=== PATIENT | female | born 1990 | race Caucasian/White ===

== ENCOUNTER 2016-12-21 15:48 | Inpatient (IN) | payer OTHER ==
[~2016-12-21] VITALS: Ht 170.2 cm; Wt 86.2 kg
[2016-12-21] VITALS (19 sets, daily range): BP systolic 124; BP diastolic 68; PULSE 62–82; RESP 18–20; TEMP 98.5
[2016-12-21] MEDS ORDERED: LACTATED RINGER'S 1000 ML INJ 1,000 ML IV PRN (19:47)
--- NOTE | 2016-12-21 19:47 | PD ---
HPI Chief Complaint 41 weeks gestation Travel History International Travel<30 Days: No Contact w/Intl Traveler<30Days: No Known Affected Area: No History of Present Illness HPI 26-year-old G3 P 1011, IUP at 41.0 care complicated by lapse in care, bipolar disorder, previous delivery, corrected VSD, GERD, anxiety, dysthymic disorder, bipolar disorder, chronic pelvic pain The patient presents at 41 weeks gestation for evaluation for a trial of labor. She reports she was told by her previous physician that if she progressed to 41 weeks without entering spontaneous labor she should go to the hospital and be evaluated. She is coming to [place] today because she desires of trial of labor and understands that we offer the service. She reports good movement. She denies any LOF or VB. She reports occasional contractions. She is committed to attempted . Weeks Gestation: 41 Para: 1 : 2 History Past Medical History Narrative Medical bipolar disorder, corrected VSD, GERD, anxiety, dysthymic disorder, bipolar disorder, chronic pelvic pain Obstetric History Obstetric History G3 1011 Full-term delivery 1 for nonreassuring heart tracing EAB 1 Past Surgical History Narrative Surgical Corrected VSD delivery Family History Narrative Family History Hypertension, CVA Social History Narrative Social History Denies drug or alcohol use History of tobacco use but DC'd during the Alcohol Use: No Tobacco Use: Yes Substance Abuse: No Allergies-Medications (Allergen,Severity, Reaction): Coded Allergies: latex (Verified Allergy, Unknown, rash, 12/21/16) Review of Systems Except as stated in HPI: all other systems reviewed are Neg Physical Exam Narrative GENERAL: Well-nourished, well-developed patient. SKIN: Warm and dry. HEAD: Normocephalic and atraumatic. EYES: No scleral icterus. No injection or drainage. ENT: No nasal drainage noted. Mucous membranes pink. Airway patent. NECK: Supple, trachea midline. No JVD. CARDIOVASCULAR: Regular rate and rhythm without murmurs, gallops, or rubs. RESPIRATORY: Breath sounds equal bilaterally. No accessory muscle use. BREASTS: Deferred ABDOMEN/GI: Abdomen soft, non-tender, bowel sounds present, no rebound, no guarding Gravid GENITOURINARY: External Genitalia: intact and normal in appearance. Normal BUS. No cervical or vaginal masses noted. Physiologic discharge. Grossly normal rugae. SVE 1/50/-3, cephalic. Uterine Contractions: Irregular FHT's: heart tones with baseline 120s, moderate long-term variability, good accelerations, no decelerations, this is a reactive/category 1 heart rate tracing EXTREMITIES: No cyanosis or edema. BACK: Nontender without obvious deformity. No CVA tenderness. NEUROLOGICAL: Awake and alert. Motor and sensory grossly within normal limits. Five out of 5 muscle strength in all muscle groups. Normal speech. Musculoskeletal: Grossly normal range of motion, gait, muscle strength Psychiatric: Grossly normal memory and affect Data Data Orders Orders Us Ob Limited (12/21/16 ) MDM Plan Assessment/plan: 1. IUP at 41.0 2. Lapse of care 3. Prior delivery: Patient strongly desires a trial of labor after . We discussed at length the risks benefits and alternatives including a scheduled repeat delivery. We discussed the risks that include but are not limited to uterine rupture with potential catastrophic consequences of maternal or morbidity and mortality including pain and damage and , maternal hysterectomy and others. The patient remains committed to a trial of labor. I personally reviewed all of her medical records but was unable to find an operative report. We discussed that a trial of labor after carries with it an approximately 1% risk of uterine rupture in the event the uterus was closed in 2 layers and may be higher if the uterus was closed in a one layer closure. We discussed the indications for a repeat delivery in labor including nonreassuring heart rate status/ heart rate decelerations and or arrest of labor. The patient is in agreement with a repeat if indicated. We discussed the risks of delivery at length including but not limited to pain, infection, bleeding, injury to other organs like the bladder/bowel/nerves/vessels, injury to the baby, need for repeat operation, need for blood transfusion, need for hysterectomy, wound infection and breakdown, and other possible complications. The patient is in agreement and we will admit for a trial of labor at term. We discussed the risks of induction of labor and the use of oxytocin may increase the risk of uterine rupture. We discussed the use of the Cook catheter as a method of manual dilation and the patient is in agreement to proceed in this manner. All of her questions and questions of her family members were answered 4. well-being: Reassuring testing with reactive NST and category 1 heart rate tracing. 5. History of VSD repair 6. bipolar disorder 7. GERD 8. anxiety 9. dysthymic disorder 10. bipolar disorder 11. chronic pelvic pain 12. GBS unknown: Will send rapid GBS 13. Ultrasound was obtained today due to lapse in care with estimated weight 3688 g with an anterior placenta and no previa noted, YURIY 13.72 Lizzy Valdez MD Dec 21, 2016 19:46
[2016-12-21] MEDS ORDERED: SODIUM CHLORID 0.9% 500 ML INJ 500 ML IV PRN (20:00)
[2016-12-21] MEDS ORDERED: LIDOCAINE HCL 1% 50 ML VIAL I-DERMAL PRN (20:00)
[2016-12-21] MEDS ORDERED: OXYTOCIN 30 UNITS-500ML PREMIX 500 ML IV ONE (20:00)
[2016-12-21] MEDS ORDERED: LIDOCAINE HCL 1% 50 ML VIAL INFIL PRN (20:00)
[2016-12-21] MEDS ORDERED: MINERAL OIL 10 ML VIAL TOPICAL PRN (20:00)
[2016-12-21] MEDS ORDERED: CITRIC ACID-SODIUM CITRATE LIQ 30 ML UDC PO SCH (20:00)
[2016-12-21] MEDS ORDERED: SODIUM CHLOR 0.9% 1000 ML INJ 1,000 ML IV PRN (20:07)
--- NOTE | 2016-12-21 20:15 | HHI.HP ---
History & Physical H&P Patient Name: Shawna Pickett Unit Number: [id number] Date of : 1990 Patient Status: Registered Emergency Room Attending Doctor: Lizzy Valdez MD [facility] HPI Chief Complaint 41 weeks gestation Travel History International Travel<30 Days: No Contact w/Intl Traveler<30Days: No Known Affected Area: No History of Present Illness HPI 26-year-old G3 P 1011, IUP at 41.0 care complicated by lapse in care, bipolar disorder, previous delivery, corrected VSD, GERD, anxiety, dysthymic disorder, bipolar disorder, chronic pelvic pain The patient presents at 41 weeks gestation for evaluation for a trial of labor. She reports she was told by her previous physician that if she progressed to 41 weeks without entering spontaneous labor she should go to the hospital and be evaluated. She is coming to [place] today because she desires of trial of labor and understands that we offer the service. She reports good movement. She denies any LOF or VB. She reports occasional contractions. She is committed to attempted . Weeks Gestation: 41 Para: 1 : 2 History (Limited) History Past Medical History Narrative Medical bipolar disorder, corrected VSD, GERD, anxiety, dysthymic disorder, bipolar disorder, chronic pelvic pain Obstetric History Obstetric History G3 1011 Full-term delivery 1 for nonreassuring heart tracing EAB 1 Past Surgical History Narrative Surgical Corrected VSD delivery Family History Narrative Family History Hypertension, CVA Social History Narrative Social History Denies drug or alcohol use History of tobacco use but DC'd during the Alcohol Use: No Tobacco Use: Yes Substance Abuse: No Allergies-Medications Allergies-Medications (Allergen,Severity, Reaction): Coded Allergies: latex (Verified Allergy, Unknown, rash, 12/21/16) ROS Review of Systems Except as stated in HPI: all other systems reviewed are Neg Physical Exam Physical Exam Narrative GENERAL: Well-nourished, well-developed patient. SKIN: Warm and dry. HEAD: Normocephalic and atraumatic. EYES: No scleral icterus. No injection or drainage. ENT: No nasal drainage noted. Mucous membranes pink. Airway patent. NECK: Supple, trachea midline. No JVD. CARDIOVASCULAR: Regular rate and rhythm without murmurs, gallops, or rubs. RESPIRATORY: Breath sounds equal bilaterally. No accessory muscle use. BREASTS: Deferred ABDOMEN/GI: Abdomen soft, non-tender, bowel sounds present, no rebound, no guarding Gravid GENITOURINARY: External Genitalia: intact and normal in appearance. Normal BUS. No cervical or vaginal masses noted. Physiologic discharge. Grossly normal rugae. SVE 1/50/-3, cephalic. Uterine Contractions: Irregular FHT's: heart tones with baseline 120s, moderate long-term variability, good accelerations, no decelerations, this is a reactive/category 1 heart rate tracing EXTREMITIES: No cyanosis or edema. BACK: Nontender without obvious deformity. No CVA tenderness. NEUROLOGICAL: Awake and alert. Motor and sensory grossly within normal limits. Five out of 5 muscle strength in all muscle groups. Normal speech. Musculoskeletal: Grossly normal range of motion, gait, muscle strength Psychiatric: Grossly normal memory and affect Data Data Data Orders Orders Us Ob Limited (12/21/16 ) MDM MDM Plan Assessment/plan: 1. IUP at 41.0 2. Lapse of care 3. Prior delivery: Patient strongly desires a trial of labor after . We discussed at length the risks benefits and alternatives including a scheduled repeat delivery. We discussed the risks that include but are not limited to uterine rupture with potential catastrophic consequences of maternal or morbidity and mortality including pain and damage and , maternal hysterectomy and others. The patient remains committed to a trial of labor. I personally reviewed all of her medical records but was unable to find an operative report. We discussed that a trial of labor after carries with it an approximately 1% risk of uterine rupture in the event the uterus was closed in 2 layers and may be higher if the uterus was closed in a one layer closure. We discussed the indications for a repeat delivery in labor including nonreassuring heart rate status/ heart rate decelerations and or arrest of labor. The patient is in agreement with a repeat if indicated. We discussed the risks of delivery at length including but not limited to pain, infection, bleeding, injury to other organs like the bladder/bowel/nerves/vessels, injury to the baby, need for repeat operation, need for blood transfusion, need for hysterectomy, wound infection and breakdown, and other possible complications. The patient is in agreement and we will admit for a trial of labor at term. We discussed the risks of induction of labor and the use of oxytocin may increase the risk of uterine rupture. We discussed the use of the Cook catheter as a method of manual dilation and the patient is in agreement to proceed in this manner. All of her questions and questions of her family members were answered 4. well-being: Reassuring testing with reactive NST and category 1 heart rate tracing. 5. History of VSD repair 6. bipolar disorder 7. GERD 8. anxiety 9. dysthymic disorder 10. bipolar disorder 11. chronic pelvic pain 12. GBS unknown: Will send rapid GBS 13. Ultrasound was obtained today due to lapse in care with estimated weight 3688 g with an anterior placenta and no previa noted, YURIY 13.72 Lizzy Valdez MD Dec 21, 2016 19:46 Lizzy Valdez MD Dec 21, 2016 20:15
--- NOTE | 2016-12-21 21:10 | HHI.PR ---
Subjective Remarks 26-year-old 011 with IUP of 41.0 undergoing induction of labor with Cook catheter for post term with previous delivery. Patient is aware of the risks and desires to proceed. Consent has previously been signed. This reassuring heart rate was category 1 heart rate tracing. The catheter was placed as per protocol and insufflated as per protocol. The patient tolerated the procedure well. Lizzy Valdez MD Dec 21, 2016 21:10
[2016-12-21 21:39] LABS: BLOOD, URINE NEG (NEG); CALCIUM OXALATE CRYSTALS,URINE OCC /hpf; COMMENT (UR) CULT NOT INDICATED; CULTURE IF INDICATED CULT NOT INDICATED; GLUCOSE,URINE 300 mg/dL (NEG); KETONE, URINE NEG (NEG); MUCUS URINE FEW /lpf (OCC); NITRITE,URINE NEG (NEG); SQUAMOUS EPITHELIAL CELL URINE 1 /hpf (0-5); URINE COLOR YELLOW (YELLW/STRAW)
[2016-12-21 23:12] LABS: BASOPHIL % 0.2 % (0.0-2.0); EOSINOPHIL # 0.1 TH/MM3 (0-0.4); EOSINOPHIL % 0.6 % (0.0-4.0); HEMATOCRIT 35.5 % (35.0-46.0); HEMO FLAGS DIFF FINAL; LYMPH % 20.4 % (9.0-44.0); LYMPHOCYTE # 2.3 TH/MM3 (1.0-4.8); MEAN CELL VOLUME 93.8 FL (80.0-100.0); MEAN CORPUSCULAR HEMOGLOBIN 31.5 PG (27.0-34.0); MEAN CORPUSCULAR HGB CONC 33.5 % (32.0-36.0); NEUT % 71.8 % (16.0-70.0); PLATELET COUNT 172 TH/MM3 (150-450); RED BLOOD COUNT 3.78 MIL/MM3 (4.00-5.30); RED CELL DISTRIBUTION WIDTH 13.2 % (11.6-17.2); WHITE BLOOD COUNT 11.1 TH/MM3 (4.0-11.0)
[2016-12-22] VITALS (175 sets, daily range): BP systolic 92–138; BP diastolic 39–81; PULSE 63–93; RESP 15–20; TEMP 98.5–99.1; O2SAT 97–100
[2016-12-22] MEDS: LACTATED RINGER'S 1000 ML INJ 1,000 ML IV SCH ×2 (03:22→19:27)
[2016-12-22] MEDS ORDERED: ONDANSETRON HCL 4 MG/2 ML VIAL IV PUSH PRN (10:30)
--- NOTE | 2016-12-22 10:48 | PD.LABORPN ---
Subjective Subjective Pt resting comfortably, feeling contractions. Denies any new symptoms. No new complaints. Objective Objective Pelvic Exam: Cervix: soft Dilatation: 5 Effacement: 80 Station: -3 Presentation: vertex Membranes: ruptured; AROM at 0904 Uterine Contractions: q2-3 minutes FHT's: Category: 1 Baseline: 135 Reactive: Yes Variability: Moderate Decels: none Weeks Gestation: 41 Gest Age Assessed Date: Dec 22, 2016 Gest Age Assessed Time: 10:44 Pt started active labor?: Yes Active labor start date: Dec 22, 2016 Active labor start time: 10:45 Medical induction of labor?: No Medical induction start date: Dec 21, 2016 Artificial rupture of membrane: Yes Artificial ROM date: Dec 22, 2016 Artifical ROM time: 09:04 Assessment/Plan Assessment and Plan 26 y/o at 41/1 for Category 1 FHT AROM at 0904 this morning -Continue expectant management -Continuous FHT -Monitor vitals -Plan for vaginal delivery Rudy Roach MD, R2 Dec 22, 2016 10:48
[2016-12-22] MEDS ORDERED: BUPIVACAINE HCL PF 0.25% 10 ML VIAL ONE ×2 (10:55→17:37)
[2016-12-22] MEDS ORDERED: fentaNYL 2MCG-BUPIV 0.125% INJ 100 ML ONE (10:56)
[2016-12-22] MEDS ORDERED: ePHEDrine/NS 25 MG/5 ML SYR ONE (10:56)
[2016-12-22] MEDS ORDERED: DIPHTH/TETANUS/ACEL PERTUSSIS (BOOSTER) 0.5 ML VIAL/PFS IM ONE (16:00)
[2016-12-22] MEDS ORDERED: MEASLES, MUMPS, RUBELLA VACCINE 0.5 ML VIAL SQ ONE (16:00)
[2016-12-22] MEDS ORDERED: OXYTOCIN 30 UNITS-500ML PREMIX 500 ML IV SCH ×2 (16:00→23:30)
[2016-12-22] MEDS ORDERED: NO SYSTEM NARCOTICS PRN (16:15)
[2016-12-22] MEDS ORDERED: DO NOT ADMINISTER ANTICOAGULANTS PRN (16:15)
[2016-12-22] MEDS ORDERED: ePHEDrine/NS 25 MG/5 ML SYR IV PUSH PRN (16:15)
[2016-12-22] MEDS: fentaNYL 2MCG-BUPIV 0.125% 100 ML EPIDURAL SCH ×2 (17:12→21:53)
--- NOTE | 2016-12-22 23:23 | PD.OB.DELI ---
Weeks gestation: 41 Gest age assessed date: Dec 22, 2016 Gest age assessed time: 10:44 Pt started active labor?: Yes Active labor start date: Dec 22, 2016 Active labor start time: 10:45 Medical induction of labor?: No Medical induction start date: Dec 21, 2016 Artificial rupture of membrane: Yes Artificial ROM date: Dec 22, 2016 Artifical ROM time: 09:04 Anesthesia: Epidural Episiotomy: None Vaginal Delivery: Normal Presentation: Occiput anterior Nuchal Cord: x1 Delayed cord clamping (45 sec): Yes Infant: Female Delivery date: Dec 22, 2016 Delivery time: 23:11 One Minute : 8 Five Minute : 9 Weight: 3635 gm Placenta: Spontaneous delivery Laceration: No lacerations Estimated blood loss: 100 cc Additional Information Sj Can II, MD Dec 22, 2016 23:23
[2016-12-22] MEDS ORDERED: BENZOCAINE 20% TOPICAL SPRAY 60 ML CAN TOPICAL PRN (23:30)
[2016-12-22] MEDS ORDERED: ONDANSETRON ODT 4 MG TAB PO PRN (23:30)
[2016-12-22] MEDS ORDERED: oxyCODONE/ACETAMINOPHEN 5 MG/325 MG TAB PO PRN (23:30)
[2016-12-22] MEDS ORDERED: WITCH HAZEL 50%/GLYCERIN 12.5% 40 PAD JAR TOPICAL PRN (23:30)
[2016-12-22] MEDS ORDERED: ALUMINUM/MAGNESIUM/SIMETH 30 ML CUP PO PRN (23:30)
[2016-12-22] MEDS ORDERED: ZOLPIDEM TARTRATE 5 MG TAB PO PRN (23:30)
[2016-12-22] MEDS ORDERED: SODIUM CHLORIDE 0.9% FLUSH 10 ML FLUSH IV FLUSH PRN (23:30)
[2016-12-22] MEDS ORDERED: DOCUSATE SODIUM 50 MG/SENNA 8.6 MG TAB PO PRN (23:30)
[2016-12-23] VITALS (9 sets, daily range): BP systolic 97–116; BP diastolic 56–75; PULSE 57–86; RESP 17–18; TEMP 97.9–98.1
[2016-12-23] MEDS: ACETAMINOPHEN 325 MG TAB PO PRN ×3 (04:24→16:24)
[2016-12-23] MEDS: IBUPROFEN 600 MG TAB PO PRN ×3 (04:25→16:24)
--- NOTE | 2016-12-23 07:45 | HHI.OB ---
Subjective Post Day: 1 Remarks term pt with last night doing well this AM , + BF , clark diet Objective Vitals/I&O Vital Signs Date Time Temp Pulse Resp B/P (MAP) Pulse Ox O2 Delivery O2 Flow Rate FiO2 12/23/16 04:57 18 12/23/16 04:56 76 116/61 (79) 12/23/16 01:00 74 109/56 (73) 12/23/16 00:45 74 113/75 (88) 12/23/16 00:30 77 116/59 (78) 12/23/16 00:15 74 104/59 (74) 12/23/16 00:01 86 97/56 (70) 12/22/16 23:47 86 124/63 (83) 12/22/16 23:42 98.5 12/22/16 23:34 15 12/22/16 23:31 80 128/64 (85) 12/22/16 23:23 16 12/22/16 23:15 92 138/77 (97) 12/22/16 23:01 77 122/67 (85) 12/22/16 23:00 77 12/22/16 22:45 73 114/62 (79) 12/22/16 22:45 73 12/22/16 22:35 75 12/22/16 22:30 73 12/22/16 22:30 80 111/59 (76) 12/22/16 22:25 74 12/22/16 22:20 72 99 12/22/16 22:15 98 12/22/16 22:15 71 109/61 (77) 12/22/16 22:15 70 12/22/16 22:10 71 12/22/16 22:10 98 12/22/16 22:05 71 12/22/16 22:05 98 12/22/16 22:00 97 12/22/16 22:00 98.9 12/22/16 22:00 70 103/51 (68) 12/22/16 22:00 69 12/22/16 21:55 97 12/22/16 21:55 72 12/22/16 21:53 17 12/22/16 21:50 97 12/22/16 21:50 17 12/22/16 21:50 71 12/22/16 21:45 74 12/22/16 21:45 74 105/53 (70) 97 12/22/16 21:40 81 98 12/22/16 21:35 86 99 12/22/16 21:30 98 12/22/16 21:30 74 12/22/16 21:30 76 108/53 (71) 12/22/16 21:27 71 109/54 (72) 12/22/16 21:25 72 12/22/16 21:25 97 12/22/16 21:20 73 97 12/22/16 21:15 71 98 12/22/16 21:10 69 98 12/22/16 21:05 69 97 12/22/16 21:00 69 98 12/22/16 20:55 71 99 12/22/16 20:50 70 98 12/22/16 20:45 84 100 12/22/16 20:40 71 98 12/22/16 20:35 73 98 12/22/16 20:30 81 100 12/22/16 20:25 78 100 12/22/16 20:20 85 100 12/22/16 20:15 78 100 12/22/16 20:10 77 99 12/22/16 20:05 99 12/22/16 20:05 75 12/22/16 20:00 76 12/22/16 20:00 99 12/22/16 20:00 99.0 16 12/22/16 20:00 77 114/64 (81) 12/22/16 19:57 77 114/60 (78) 12/22/16 19:55 98 12/22/16 19:55 81 12/22/16 19:50 99 12/22/16 19:50 84 12/22/16 19:45 79 12/22/16 19:45 99 12/22/16 19:40 80 98 12/22/16 19:35 74 97 12/22/16 19:30 76 98 12/22/16 19:25 75 98 12/22/16 19:20 75 99 12/22/16 19:15 77 99 12/22/16 19:10 76 12/22/16 19:10 99 12/22/16 19:05 98 12/22/16 19:05 73 12/22/16 19:00 100 12/22/16 19:00 79 12/22/16 18:55 73 12/22/16 18:55 100 12/22/16 18:50 100 12/22/16 18:50 78 12/22/16 18:45 100 12/22/16 18:45 69 12/22/16 18:40 66 12/22/16 18:35 69 12/22/16 18:30 69 12/22/16 18:25 73 12/22/16 18:20 74 12/22/16 18:15 16 12/22/16 18:15 72 12/22/16 18:10 73 12/22/16 18:05 71 12/22/16 18:00 77 111/64 (80) 12/22/16 18:00 71 12/22/16 17:55 75 12/22/16 17:50 74 12/22/16 17:45 74 108/61 (77) 12/22/16 17:45 74 12/22/16 17:43 79 114/64 (81) 12/22/16 17:40 76 12/22/16 17:35 82 12/22/16 17:30 79 12/22/16 17:30 77 104/70 (81) 12/22/16 17:25 81 12/22/16 17:20 85 12/22/16 17:15 72 12/22/16 17:15 84 120/62 (81) 12/22/16 17:10 74 12/22/16 17:05 78 12/22/16 17:00 85 12/22/16 17:00 85 117/61 (79) 12/22/16 16:55 81 12/22/16 16:50 81 12/22/16 16:45 74 106/57 (73) 12/22/16 16:45 99.1 20 12/22/16 16:45 77 12/22/16 16:41 76 105/63 (77) 12/22/16 16:40 83 12/22/16 16:00 79 110/54 (72) 12/22/16 15:45 76 104/45 (64) 12/22/16 15:30 67 95/39 (57) 12/22/16 15:15 67 99/41 (60) 12/22/16 15:00 71 99/43 (61) 12/22/16 14:45 99.0 69 18 92/41 (58) 12/22/16 14:30 65 101/39 (59) 12/22/16 14:15 75 99/53 (68) 12/22/16 14:00 69 98/53 (68) 12/22/16 13:45 72 98/58 (71) 12/22/16 13:31 83 110/62 (78) 12/22/16 13:20 74 12/22/16 13:15 77 12/22/16 13:15 93 114/72 (86) 12/22/16 13:05 67 12/22/16 13:00 70 12/22/16 13:00 67 111/56 (74) 12/22/16 12:55 67 12/22/16 12:50 80 12/22/16 12:45 70 115/57 (76) 12/22/16 12:45 69 12/22/16 12:40 76 12/22/16 12:35 78 12/22/16 12:30 70 12/22/16 12:30 79 110/59 (76) 12/22/16 12:25 71 12/22/16 12:20 77 12/22/16 12:15 72 109/63 (78) 12/22/16 12:15 70 12/22/16 12:10 74 12/22/16 12:10 69 117/58 (77) 12/22/16 12:10 70 12/22/16 12:05 74 104/68 (80) 12/22/16 12:05 77 12/22/16 12:05 73 12/22/16 12:00 74 112/56 (74) 12/22/16 12:00 67 12/22/16 12:00 73 12/22/16 11:56 72 107/61 (76) 12/22/16 11:55 69 12/22/16 11:55 70 12/22/16 11:50 70 12/22/16 11:50 70 12/22/16 11:50 69 116/66 (83) 12/22/16 11:45 69 12/22/16 11:45 72 12/22/16 11:45 71 123/69 (87) 12/22/16 11:40 68 12/22/16 11:40 70 12/22/16 11:40 71 121/67 (85) 12/22/16 11:35 69 12/22/16 11:35 69 12/22/16 11:35 70 119/68 (85) 12/22/16 11:30 73 129/63 (85) 12/22/16 11:30 67 12/22/16 11:30 74 12/22/16 11:25 74 12/22/16 11:25 67 122/60 (80) 12/22/16 11:25 72 12/22/16 11:21 119/69 (86) 12/22/16 11:21 63 12/22/16 11:20 75 12/22/16 11:20 88 12/22/16 11:19 90 12/22/16 11:19 121/74 (90) 12/22/16 11:15 122/65 (84) 12/22/16 11:15 80 12/22/16 11:15 80 12/22/16 11:15 75 12/22/16 11:11 71 12/22/16 11:11 124/68 (86) 12/22/16 11:10 77 12/22/16 11:10 78 12/22/16 11:05 83 12/22/16 11:05 81 12/22/16 11:00 78 12/22/16 10:45 74 12/22/16 10:40 64 12/22/16 10:35 73 12/22/16 10:30 74 113/67 (82) 12/22/16 10:30 80 12/22/16 09:55 84 12/22/16 09:50 80 12/22/16 09:45 80 12/22/16 09:40 79 12/22/16 09:35 74 12/22/16 09:25 76 12/22/16 09:20 79 12/22/16 09:15 77 12/22/16 09:10 81 12/22/16 09:05 78 12/22/16 09:00 76 12/22/16 08:55 74 12/22/16 08:50 85 12/22/16 08:45 74 12/22/16 08:40 78 12/22/16 08:35 81 12/22/16 08:30 83 12/22/16 07:45 80 108/66 (80) 12/22/16 07:45 98.5 85 Objective Remarks GENERAL: Well-nourished, well-developed patient. CARDIOVASCULAR: Regular rate and rhythm without murmurs, gallops, or rubs. RESPIRATORY: Breath sounds equal bilaterally. No accessory muscle use. ABDOMEN/GI: Abdomen soft, non-tender. Fundus: Firm, non-tender at umbilicus. GENITOURINARY: Light to moderate bleeding. EXTREMITIES: No cyanosis or edema, non-tender, without signs of DVT. Medications and IVs Current Medications Medications (Trade) Dose Ordered Sig/Hilaria Route Start Time Stop Time Status Last Admin Lactated Ringer's 1,000 ml @ 125 mls/hr Q8H IV 12/21/16 19:47 12/22/16 19:27 Lactated Ringer's 1,000 ml @ 3,000 mls/hr Q20M PRN IV 12/21/16 19:47 Sodium Chloride 500 ml @ 1,000 mls/hr ONCE PRN IV 12/21/16 20:00 Sodium Chloride 1,000 ml @ 100 mls/hr Q10H PRN IV 12/21/16 20:07 (Xylocaine 1% Inj (50 ml)) 0.1 ml UNSCH X1 PRN I-DERMAL 12/21/16 20:00 12/24/16 19:59 (Bicitra Liq) 30 ml OBSTETRICS NURSE PO 12/21/16 20:00 12/25/16 19:59 (fentaNYL INJ) 50 mcg Q1H PRN IV PUSH 12/21/16 20:00 (fentaNYL INJ) 100 mcg Q1H PRN IV PUSH 12/21/16 20:00 12/22/16 09:39 (Xylocaine 1% Inj (50 ml)) 10 ml UNSCH X1 PRN INFIL 12/21/16 20:00 12/23/16 19:59 (Muri-Lube Oil) 10 ml UNSCH PRN TOPICAL 12/21/16 20:00 12/22/16 23:31 (Zofran Inj) 4 mg Q6HR PRN IV PUSH 12/22/16 10:30 Oxytocin 500 ml @ 0 mls/hr TITRATE IV 12/22/16 16:00 12/22/16 15:55 Miscellaneous Information No systemic narcotics to be given except... UNSCH PRN .XX 12/22/16 16:15 12/23/16 16:14 Miscellaneous Information DO NOT ADMINISTER ANY ANTICOAGUL... UNSCH PRN .XX 12/22/16 16:15 12/23/16 16:14 Fentanyl/ Bupivacaine HCl 100 ml @ 0 mls/hr TITRATE EPIDURAL 12/22/16 16:15 12/22/16 21:53 (ePHEDrine/NS 25 MG/5 ML SYR) 10 mg UNSCH PRN IV PUSH 12/22/16 16:15 12/23/16 16:14 (NS Flush) 2 ml BID IV FLUSH 12/23/16 09:00 (NS Flush) 2 ml UNSCH PRN IV FLUSH 12/22/16 23:30 (Tylenol) 650 mg Q4H PRN PO 12/22/16 23:30 12/23/16 04:24 (Motrin) 600 mg Q6H PRN PO 12/22/16 23:30 12/23/16 04:25 (Percocet 5-325 Mg) 1 tab Q4H PRN PO 12/22/16 23:30 (Americaine 20% Top Spr) 1 spray Q4H PRN TOPICAL 12/22/16 23:30 (Tucks Pads) 1 applic QID PRN TOPICAL 12/22/16 23:30 (Kisha-Colace) 2 tab Q12H PRN PO 12/22/16 23:30 (Ambien) 5 mg HS PRN PO 12/22/16 23:30 (Mag-Al Plus Susp Liq) 15 ml Q8H PRN PO 12/22/16 23:30 (Zofran Odt) 4 mg Q6H PRN PO 12/22/16 23:30 Assessment/Plan Assessment and Plan PPD 1 doing well nl PP course advance care probably D/C lat [place] or next day Sj Can II, MD Dec 23, 2016 07:45
[2016-12-23] MEDS ORDERED: SODIUM CHLORIDE 0.9% FLUSH 10 ML FLUSH IV FLUSH SCH (09:00)
[2016-12-24] MEDS: ACETAMINOPHEN 325 MG TAB PO PRN ×2 (02:07→08:39)
[2016-12-24] MEDS: IBUPROFEN 600 MG TAB PO PRN ×2 (02:07→08:40)
[2016-12-24 08:00] VITALS: BP 108/71; PULSE 68; RESP 16; TEMP 98
[2016-12-24] MEDS ORDERED: IBUP-232 PO (10:11)
--- NOTE | 2016-12-24 10:12 | HHI.DCPOC ---
Discharge Care Plan Diagnosis: (1) , delivered, current hospitalization Report Symptoms to Your Doctor -Temperature above 100.5 degrees -Redness, of incision or excessive or foul smelling drainage -Unusual pain or calf pain -Increased vaginal bleeding -Painful or difficulty urinating -Feelings of extreme sadness or anxiety after 2 weeks Goals to Promote Your Health * To prevent worsening of your condition and complications * To maintain your health at the optimal level Directions to Meet Your Goals Take your medications as prescribed Follow your dietary instruction Follow activity as directed Ensure plenty of rest for recovery Drink fluids for hydration Keep your appointments as scheduled Take your immunizations and boosters as scheduled If your symptoms worsen call your PCP, if no PCP go to Urgent Care Center or Emergency Room Smoking is Dangerous to Your Health. Avoid second hand smoke Call the 24-hour crisis hotline for domestic abuse at Sebastian Bowers MD R2 Dec 24, 2016 10:12
--- NOTE | 2016-12-24 11:21 | HHI.OB ---
Subjective Remarks 26 year old female s/p at 41 wks gestation, PPD 2. AFVSS. Patient reports she is feeling well. Bleeding is decreasing and pain is well- controlled. She is breast feeding and bonding well with baby. Ambulating without difficulties. She is tolerating a diet without nausea or vomiting. She has not had a bowel movement. She has passed gas. Denies chest pain, dysuria, shortness of breath, or calf pain. (Sebastian Bowers MD R2) Remarks Patient seen and evaluated with resident under direct supervision, agree with assessment and plan. (Tomás Pelayo MD) Objective Vitals/I&O Vital Signs Date Time Temp Pulse Resp B/P (MAP) Pulse Ox O2 Delivery O2 Flow Rate FiO2 12/23/16 19:00 98.1 63 18 111/69 (83) Objective Remarks GENERAL: Well-nourished, well-developed patient. CARDIOVASCULAR: Regular rate and rhythm without murmurs, gallops, or rubs. RESPIRATORY: Breath sounds equal bilaterally. No accessory muscle use. ABDOMEN/GI: Abdomen soft, non-tender. Fundus: Firm, non-tender at umbilicus. GENITOURINARY: Light to moderate bleeding. EXTREMITIES: No cyanosis or edema, non-tender, without signs of DVT. Medications and IVs Current Medications Medications (Trade) Dose Ordered Sig/Hilaria Route Start Time Stop Time Status Last Admin Lactated Ringer's 1,000 ml @ 125 mls/hr Q8H IV 12/21/16 19:47 12/22/16 19:27 Lactated Ringer's 1,000 ml @ 3,000 mls/hr Q20M PRN IV 12/21/16 19:47 Sodium Chloride 500 ml @ 1,000 mls/hr ONCE PRN IV 12/21/16 20:00 Sodium Chloride 1,000 ml @ 100 mls/hr Q10H PRN IV 12/21/16 20:07 (Xylocaine 1% Inj (50 ml)) 0.1 ml UNSCH X1 PRN I-DERMAL 12/21/16 20:00 12/24/16 19:59 (Bicitra Liq) 30 ml METER TECHNICIAN PO 12/21/16 20:00 12/25/16 19:59 (fentaNYL INJ) 50 mcg Q1H PRN IV PUSH 12/21/16 20:00 (fentaNYL INJ) 100 mcg Q1H PRN IV PUSH 12/21/16 20:00 12/22/16 09:39 (Muri-Lube Oil) 10 ml UNSCH PRN TOPICAL 12/21/16 20:00 12/22/16 23:31 (Zofran Inj) 4 mg Q6HR PRN IV PUSH 12/22/16 10:30 Oxytocin 500 ml @ 0 mls/hr TITRATE IV 12/22/16 16:00 12/22/16 15:55 Fentanyl/ Bupivacaine HCl 100 ml @ 0 mls/hr TITRATE EPIDURAL 12/22/16 16:15 12/22/16 21:53 (NS Flush) 2 ml BID IV FLUSH 12/23/16 09:00 (NS Flush) 2 ml UNSCH PRN IV FLUSH 12/22/16 23:30 (Tylenol) 650 mg Q4H PRN PO 12/22/16 23:30 12/24/16 08:39 (Motrin) 600 mg Q6H PRN PO 12/22/16 23:30 12/24/16 08:40 (Percocet 5-325 Mg) 1 tab Q4H PRN PO 12/22/16 23:30 (Americaine 20% Top Spr) 1 spray Q4H PRN TOPICAL 12/22/16 23:30 12/23/16 09:21 (Tucks Pads) 1 applic QID PRN TOPICAL 12/22/16 23:30 12/23/16 09:21 (Kisha-Colace) 2 tab Q12H PRN PO 12/22/16 23:30 (Ambien) 5 mg HS PRN PO 12/22/16 23:30 (Mag-Al Plus Susp Liq) 15 ml Q8H PRN PO 12/22/16 23:30 (Zofran Odt) 4 mg Q6H PRN PO 12/22/16 23:30 (Sebastian Bowers MD R2) Assessment/Plan Assessment and Plan 26 yo female s/p , PPD 2 - AFVSS - Continue routine care - Motrin PRN pain - Encourage OOB - Pelvic rest x 6 wks - Contraception: Undecided - Home today (Sebastian Bowers MD R2) Sebastian Bowers MD R2 Dec 24, 2016 11:21 Tomás Pelayo MD Dec 30, 2016 10:09
== END 2016-12-24 15:16 | disposition home or self-care (01) | DRG 775 ==
LOC: HOBED 15:48 → H2EA 19:52 → H1EA 12-23 03:54
PROVIDERS: ADMIT Obstetrics & Gynecology; ATTEND Obstetrics & Gynecology
PROC: 0U7C7ZZ Dilation of Cervix, Via Natural or Artificial Opening (ICD-10-PCS; 2016-12-21)
PROC: 10E0XZZ Delivery of Products of Conception, External Approach (ICD-10-PCS; principal; 2016-12-22)
PROC: 10907ZC Drainage of Amniotic Fluid, Therapeutic from Products of Conception, Via Natural or Artificial Opening (ICD-10-PCS; 2016-12-22)
PROC: 00HU33Z Insertion of Infusion Device into Spinal Canal, Percutaneous Approach (ICD-10-PCS; 2016-12-22)
PROC: 3E0R3BZ Introduction of Anesthetic Agent into Spinal Canal, Percutaneous Approach (ICD-10-PCS; 2016-12-22)
DX: O48.0 Post-term pregnancy (principal); O99.344 Other mental disorders complicating childbirth; F31.9 Bipolar disorder, unspecified; O34.219 Maternal care for unspecified type scar from previous cesarean delivery; Z37.0 Single live birth; K21.9 Gastro-esophageal reflux disease without esophagitis; F34.1 Dysthymic disorder; O99.62 Diseases of the digestive system complicating childbirth; G89.29 Other chronic pain; F41.9 Anxiety disorder, unspecified; R10.2 Pelvic and perineal pain; O69.81X0 Labor and delivery complicated by cord around neck, without compression, not applicable or unspecified; Z3A.41 41 weeks gestation of pregnancy; Z87.74 Personal history of (corrected) congenital malformations of heart and circulatory system; Z87.891 Personal history of nicotine dependence
CPT/HCPCS: 59025; 76816; 81001; 85025; 86900; 86901; 87081; 87150; J2590; J3010; J7120